=== PATIENT | female | born 1945 | race Two or more races ===

== ENCOUNTER → 2022-12-27 | Outpatient (REF) | payer MEDICARE, OTHER ==
[~2022-12-27] MED LIST: B-12100021 PO; CALC600T57 PO; METO1TAB32 PO; MV-M1TAB13 PO; PERI12LIQ BC; SIMV10TA21 PO; TOPR50TA PO; VITA200016 PO; XARE15TA PO; XARE20TA PO
== END ==
LOC: M SFHCDERM 16:27
PROVIDERS: ATTEND Dermatology
DX: Z48.02 Encounter for removal of sutures (principal)

== ENCOUNTER → 2023-01-10 | Outpatient (REF) | payer MEDICARE, OTHER | LOC: M SFHCDERM 18:55 | PROVIDERS: ATTEND Dermatology | DX: T14.90XD Injury, unspecified, subsequent encounter (principal) ==

== ENCOUNTER → 2023-01-15 | Outpatient (REF) | payer MEDICARE, OTHER | LOC: M SFHCDERM 14:41 | PROVIDERS: ATTEND Dermatology | DX: T14.90XD Injury, unspecified, subsequent encounter (principal) ==

== ENCOUNTER → 2023-07-16 | Outpatient (REF) | payer MEDICARE, OTHER | LOC: M SFHCDERM 17:27 | PROVIDERS: ATTEND Physician Assistant | DX: L92.3 Foreign body granuloma of the skin and subcutaneous tissue (principal); L98.8 Other specified disorders of the skin and subcutaneous tissue; L08.89 Other specified local infections of the skin and subcutaneous tissue ==